=== PATIENT | female | born 1965 | race Two or more races ===

== ENCOUNTER 2025-02-13 15:41 | Emergency (ER) | payer SELFPAY ==
[2025-02-13 15:42] VITALS: BP 133/74; PULSE 99; RESP 26; TEMP 98.6; O2SAT 99
== END 2025-02-13 17:20 | disposition left against medical advice (07) ==
LOC: ER 15:41
DX: R11.2 Nausea with vomiting, unspecified (principal); F41.9 Anxiety disorder, unspecified; Z53.21 Procedure and treatment not carried out due to patient leaving prior to being seen by health care provider